=== PATIENT | female | born 1965 | race Caucasian/White ===

== ENCOUNTER 2016-09-09 22:31 | Emergency (ER) | payer BC, OTHER ==
[2016-09-09] MEDS ORDERED: NORMAL SALINE 1000 ML 1,000 ML IV ONE (23:07)
[2016-09-09] MEDS ORDERED: DIPHENHYDRAMINE HCL 50 MG/ML VIAL IV ONE (23:08)
[2016-09-09] MEDS ORDERED: METOCLOPRAMIDE HCL INJ/PF 10 MG/2 ML SDV IV ONE (23:08)
[2016-09-09] MEDS ORDERED: KETOROLAC TROMETHAMINE INJ/PF 30 MG/1 ML SDV IV ONE (23:08)
--- NOTE | 2016-09-09 23:11 | ER Document Report ---
ED General - General Chief Complaint: Chest Pain Stated Complaint: ABDOMINAL PAIN TRAVEL OUTSIDE OF THE [place] IN LAST 30 DAYS: No - HPI Patient complains to provider of: chest pain abdominal pain Notes: Patient coming in for right-sided chest pain abdominal pain starting at 1400 hrs. today. Patient states that time to come nitroglycerin tablet relief her pain was right-sided patient states pain return now feels like a band around her chest and states now she is nauseous. Patient states she took 3 nitros at home 5 minutes apart with no relief in her pain therefore came to ER for further evaluation. Otherwise patient denies a cardiac history denies stents by bypass denies any acute [place] but states that her physician has prescribed her nitro drip home. Patient does have a history of anxiety elevated blood pressure. Patient states she's had a negative stress tests in the past however has been "many years. Patient denies any trauma denies any recent travel denies shortness of breath denies diarrhea. Patient does state she was constipatednoon and had to disimpact herself. Patient initially states pain is very mild however during interview process the nurse attempted an IV stick stated that her chest pain increased to 8 out of 10. Pain was right-sided. - Related Data Allergies/Adverse Reactions: No Known Allergies Allergy (Verified 09/09/16 22:47) Past Medical History - Social History Smoking Status: Unknown if Ever Smoked Family History: CAD - Parents and grandparents in their 60s., CVA, Hypertension , Other - Hypercoagulable state with blood clots - Past Medical History Cardiac Medical History: Reports: Hx Hypercholesterolemia, Hx Hypertension Pulmonary Medical History: Reports: Hx Asthma GI Medical History: Reports: Hx Gastroesophageal Reflux Disease Psychiatric Medical History: Reports: Hx Anxiety, Hx Bipolar Disorder, Hx Depression Past Surgical History: Reports: Hx Appendectomy, Hx Hysterectomy - Immunizations Hx Diphtheria, Pertussis, Tetanus Vaccination: - UNKNOWN Review of Systems - Review of Systems Constitutional: No symptoms reported EENT: No symptoms reported Cardiovascular: Chest pain - Right-sided Respiratory: No symptoms reported Gastrointestinal: Abdominal pain Genitourinary: No symptoms reported Female Genitourinary: No symptoms reported Musculoskeletal: No symptoms reported Skin: No symptoms reported Hematologic/Lymphatic: No symptoms reported Neurological/Psychological: No symptoms reported Physical Exam - Vital signs Vitals: Resp Pulse Ox 14 96 09/09/16 23:31 09/09/16 23:31 Interpretation: Normal - General General appearance: Appears well, Alert - HEENT Head: Normocephalic, Atraumatic Eyes: Normal Pupils: PERRL - Respiratory Respiratory status: No respiratory distress Chest status: Nontender Breath sounds: Normal Chest palpation: Normal - Cardiovascular Rhythm: Regular Heart sounds: Normal auscultation Murmur: No - Abdominal Inspection: Normal Distension: No distension Bowel sounds: Normal Tenderness: Nontender Organomegaly: No organomegaly - Back Back: Normal, Nontender - Extremities General upper extremity: Normal inspection, Nontender, Normal color, Normal ROM , Normal temperature General lower extremity: Normal inspection, Nontender, Normal color, Normal ROM , Normal temperature, Normal weight bearing. No: Althea's sign - Neurological Neuro grossly intact: Yes Cognition: Normal Orientation: AAOx4 Yasmin Coma Scale Eye Opening: Spontaneous [place] Coma Scale Verbal: Oriented [place] Coma Scale Motor: Obeys Commands Yasmin Coma Scale Total: 15 Speech: Normal Motor strength normal: LUE, RUE, LLE, RLE Sensory: Normal - Psychological Associated symptoms: Normal affect, Normal mood - Skin Skin Temperature: Warm Skin Moisture: Dry Skin Color: Normal Course - Re-evaluation Re-evalutation: 09/10/16 00:59 Patient EKG troponin returned negative. D-dimer is also negative. Patient's x- ray does show moderate stool burden large amount stool in the right upper quadrant and transverse colon. More likely this is the reasons for the patient' s pain. Patient will be given a bottle of mag citrate encouraged to follow-up her primary care physician will be discharged home. The patient presents with abdominal pain without signs of peritonitis or other life-threatening or serious etiology. The patient appears stable for discharge and has been instructed to return immediately if the symptoms worsen in any way , or in 8-12hr if not improved for re-evaluation. The patient has been instructed to return if the symptoms worsen or change in any way.. The patient has atypical chest pain as the patient's chest pain is not suggestive of pulmonary embolus, cardiac ischemia, aortic dissection, or other serious etiology. Given the extremely low risk of these diagnoses further testing and evaluation for these possibilities does not appear to be indicated at this time. The patient has been instructed to return if the symptoms worsen or change in any way. - Vital Signs Vital signs: Temp Pulse Resp BP Pulse Ox 14 96 09/09/16 23:31 09/09/16 23:31 - Laboratory Result Diagrams: 09/09/16 23:19 09/09/16 23:19 Discharge - Discharge Clinical Impression: Right-sided chest wall pain Constipation Qualifiers: Constipation type: drug induced constipation Qualified Code(s): K59.03 - Drug induced constipation Condition: Good Disposition: HOME, SELF-CARE Instructions: Chest Pain of Unclear Cause ([facility]), Chest Wall Pain ([facility]), Abdominal Pain ([facility]), Constipation ([facility]) Additional Instructions: Please drink the entire bottle of mag citrate to relieve your constipation. This may cause some abdominal cramping and nausea. May take nausea medication as directed. Please follow-up with your primary care physician. Your laboratory today shows no serious etiology for your right-sided chest pain or your abdominal pain. Forms: Return to Work
[2016-09-09 23:34] LABS: ABSOLUTE BASOPHILS # (AUTO) 0.1 10^3/uL (0.0-0.2); ABSOLUTE EOSINOPHILS # (AUTO) 0.3 10^3/uL (0.0-0.6); ABSOLUTE LYMPHOCYTES (AUTO) 2.5 10^3/uL (0.5-4.7); ABSOLUTE MONOCYTES (AUTO) 0.6 10^3/uL (0.1-1.4); ABSOLUTE NEUT (AUTO) 4.5 10^3/uL (1.7-8.2); BASOPHILS % (AUTO) 1.2 % (0-2); HEMATOCRIT 39.5 % (36.0-47.0); HEMOGLOBIN 12.7 g/dL (12.0-15.5); HGB HCT DIFFERENCE -1.4; LYMPHOCYTES % (AUTO) 30.8 % (13-45); MEAN CORPUSCULAR HEMOGLOBIN 28.8 pg (27.0-33.4); MEAN CORPUSCULAR HGB CONC 32.2 g/dL (32.0-36.0); MEAN CORPUSCULAR VOLUME 90 fl (80-97); RED BLOOD COUNT 4.41 10^6/uL (3.72-5.28); RED CELL DISTRIBUTION WIDTH 13.4 % (11.5-14.0); WHITE BLOOD COUNT 8.1 10^3/uL (4.0-10.5)
[2016-09-09 23:35] LABS: APPEARANCE,URINE CLEAR; BILIRUBIN,URINE NEGATIVE (NEGATIVE); GLUCOSE, URINE NEGATIVE (NEGATIVE); KETONES,URINE NEGATIVE (NEGATIVE); LEUKOCYTE ESTERASE,URINE NEGATIVE (NEGATIVE); NITRITE,URINE NEGATIVE (NEGATIVE); PROTEIN,URINE NEGATIVE (NEGATIVE); URINE SPECIFIC GRAVITY 1.014; UROBILINOGEN,URINE NEGATIVE mg/dL (<2.0)
[2016-09-10 00:02] LABS: ALANINE AMINOTRANSFERASE 27 U/L (9-52); ALBUMIN 4.4 g/dL (3.5-5.0); ALKALINE PHOSPHATASE 68 U/L (38-126); ANION GAP 12 (5-19); ASPARTATE AMINO TRANSFERASE 19 U/L (14-36); BILIRUBIN,TOTAL 0.7 mg/dL (0.2-1.3); BLOOD UREA NITROGEN 16 mg/dL (7-20); CALCIUM 9.8 mg/dL (8.4-10.2); CARBON DIOXIDE 30 mmol/L (22-30); CHLORIDE 101 mmol/L (98-107); CREATINE KINASE 101 U/L (30-135); CREATININE RESULT 0.88 mg/dL (0.52-1.25); GLUCOSE 90 mg/dL (75-110); LIPASE 143.1 U/L (23-300); POTASSIUM 4.4 mmol/L (3.6-5.0); SODIUM 142.6 mmol/L (137-145); TOTAL PROTEIN 6.9 g/dL (6.3-8.2)
[2016-09-10 00:13] LABS: CREATINE KINASE MB 1.03 ng/mL (<4.55)
[2016-09-10 00:19] LABS: TROPONIN I < 0.012 ng/mL
[2016-09-10 00:43] LABS: URINE BARBITURATES SCREEN NEGATIVE; URINE METHADONE SCREEN NEGATIVE; URINE PHENCYCLIDINE SCREEN NEGATIVE
[2016-09-10] MEDS ORDERED: ONDANSETRON ODT 4 MG TAB (6 TAB/DSPK) PO PRN (01:02)
[2016-09-10] MEDS ORDERED: MAGNESIUM CITRATE 296 ML BOTTLE PO ONE (01:02)
[2016-09-10 01:32] VITALS: BP 105/64
--- NOTE | 2016-09-10 08:18 | EKG REPORT ---
SEVERITY:- NORMAL ECG - SINUS RHYTHM : Confirmed by: Glen Dye MD 10-Sep-2016 08:17:45
== END 2016-09-10 01:40 | disposition home or self-care (01) ==
LOC: ER 22:31
DX: R07.89 Other chest pain (principal); K59.03 Drug induced constipation; R10.9 Unspecified abdominal pain; R11.0 Nausea; E78.00 Pure hypercholesterolemia, unspecified; I10 Essential (primary) hypertension; K21.9 Gastro-esophageal reflux disease without esophagitis; Z90.710 Acquired absence of both cervix and uterus
CPT/HCPCS: 93005; 99285; 96361; 96374; 96375; 36415; 87086; 82553; 82550; 83690; 83735; 85025; 80053; 81001; 84484; 80307; 85379; 74022; 93010; J3490; J1200; J1885; J2765; J7030

== ENCOUNTER 2017-12-23 19:20 | Observation (INO) | payer OTHER ==
[2017-12-23] MEDS ORDERED: ONDANSETRON HCL INJ/PF 4 MG/2 ML SDV IV ONE (20:40)
[2017-12-23] MEDS ORDERED: NORMAL SALINE 1000 ML 1,000 ML IV ONE ×2 (20:40→22:34)
[2017-12-23] MEDS ORDERED: PROCHLORPERAZINE EDISYLATE INJ 10 MG/2 ML VIAL IV ONE (20:40)
[2017-12-23 21:09] LABS: ABSOLUTE BASOPHILS # (AUTO) 0.1 10^3/uL (0.0-0.2); ABSOLUTE EOSINOPHILS # (AUTO) 0.2 10^3/uL (0.0-0.6); ABSOLUTE LYMPHOCYTES (AUTO) 1.7 10^3/uL (0.5-4.7); ABSOLUTE MONOCYTES (AUTO) 0.5 10^3/uL (0.1-1.4); ABSOLUTE NEUT (AUTO) 4.1 10^3/uL (1.7-8.2); BASOPHILS % (AUTO) 1.3 % (0-2); EOSINOPHILS % (AUTO) 3.3 % (0-6); HEMATOCRIT 39.4 % (36.0-47.0); HEMOGLOBIN 13.3 g/dL (12.0-15.5); LYMPHOCYTES % (AUTO) 26.3 % (13-45); MEAN CORPUSCULAR HEMOGLOBIN 29.1 pg (27.0-33.4); MEAN CORPUSCULAR HGB CONC 33.7 g/dL (32.0-36.0); MEAN CORPUSCULAR VOLUME 86 fl (80-97); MONOCYTES % (AUTO) 7.5 % (3-13); PLATELET COUNT 173 10^3/uL (150-450); RED BLOOD COUNT 4.56 10^6/uL (3.72-5.28); RED CELL DISTRIBUTION WIDTH 13.8 % (11.5-14.0); SEGMENTED NEUTROPHILS % (AUTO) 61.6 % (42-78); TOTAL CELLS COUNTED % (AUTO) 100 %; WHITE BLOOD COUNT 6.6 10^3/uL (4.0-10.5)
[2017-12-23 21:15] LABS: INTERNATIONAL RATION (INR) 0.94; PROTHROMBIN TIME 13.1 SEC (11.4-15.4)
[2017-12-23 21:23] LABS: ALANINE AMINOTRANSFERASE 34 U/L (9-52); ALKALINE PHOSPHATASE 76 U/L (38-126); ANION GAP 11 (5-19); ASPARTATE AMINO TRANSFERASE 19 U/L (14-36); BILIRUBIN,DIRECT 0.2 mg/dL (0.0-0.4); BILIRUBIN,TOTAL 0.4 mg/dL (0.2-1.3); BLOOD UREA NITROGEN 14 mg/dL (7-20); CALCIUM 9.7 mg/dL (8.4-10.2); CARBON DIOXIDE 27 mmol/L (22-30); CHLORIDE 104 mmol/L (98-107); CREATINE KINASE 54 U/L (30-135); GLUCOSE 119 mg/dL (75-110); LIPASE 58.3 U/L (23-300); POTASSIUM 4.2 mmol/L (3.6-5.0); SODIUM 142.4 mmol/L (137-145); TOTAL PROTEIN 6.7 g/dL (6.3-8.2)
--- NOTE | 2017-12-23 21:25 | RADIOLOGY REPORT (SQ) ---
EXAM DESCRIPTION: CT HEAD WITHOUT COMPLETED DATE/TIME: 12/23/2017 9:15 pm REASON FOR STUDY: dizzy COMPARISON: None. TECHNIQUE: Axial images acquired through the brain without intravenous contrast. Images reviewed wi th bone, brain and subdural windows. Additional sagittal and coronal reconstructions were generated. Images stored on PACS. All CT scanners at this facility use dose modulation, iterative reconstruction, and/or weight based d osing when appropriate to reduce radiation dose to as low as reasonably achievable (ALARA). [facility]: Dose Right [facility]: CareDose [facility]: Dose Right [facility]: Teradose 4D [facility]: Accord RADIATION DOSE: CT Rad equipment meets quality standard of care and radiation dose reduction techniq ues were employed. CTDIvol: 53.2 mGy. DLP: 1017 mGy-cm. mGy. LIMITATIONS: None. FINDINGS: VENTRICLES: Normal size and contour. CEREBRUM: No masses. No hemorrhage. No midline shift. No evidence for acute infarction. Normal gra y/white matter differentiation. No areas of low density in the white matter. CEREBELLUM: No masses. No hemorrhage. No alteration of density. No evidence for acute infarction. EXTRAAXIAL SPACES: No fluid collections. No masses. ORBITS AND GLOBE: No intra- or extraconal masses. Normal contour of globe without masses. CALVARIUM: No fracture. PARANASAL SINUSES: No fluid or mucosal thickening. SOFT TISSUES: No mass or hematoma. OTHER: No other significant finding. IMPRESSION: NORMAL BRAIN CT WITHOUT CONTRAST. EVIDENCE OF ACUTE STROKE: NO. COMMENT: Quality ID # [id number]: Final reports with documentation of one or more dose reduction techniques (e.g., Automated exposure control, adjustment of the mA and/or kV according to patient size, use of iterative reconstruction technique) TECHNICAL DOCUMENTATION: JOB ID: [id number] [employer]- All Rights Reserved Reading location - IP/workstation name: PAT
[2017-12-23 21:35] LABS: CREATINE KINASE MB 0.67 ng/mL (<4.55)
[2017-12-23 21:37] LABS: TROPONIN I < 0.012 ng/mL
--- NOTE | 2017-12-23 22:24 | EKG REPORT ---
SEVERITY:- NORMAL ECG - SINUS RHYTHM : Confirmed by: Giovani Maza 23-Dec-2017 22:23:49
[2017-12-23] MEDS ORDERED: ACETAMINOPHEN 325 MG TABLET PO ONE (22:41)
--- NOTE | 2017-12-23 23:18 | ER Document Report ---
ED General - General TRAVEL OUTSIDE OF THE [place] IN LAST 30 DAYS: No - HPI Patient complains to provider of: Dizziness <OSCAR AKBAR - Last Filed: 12/23/17 23:27> <ASHISH DODGE - Last Filed: 12/24/17 02:58> - General Chief Complaint: Dizziness Stated Complaint: DIZZINESS Time Seen by Provider: 12/23/17 20:25 - HPI Notes: History this morning. Patient states also having a ringing in both ears. Patient has a history of having symptoms before denies history of vertigo or ringing in her ear. Denies any recent travel or travel or swimming or diving. Denies any drainage from her ear or ear pain. Patient states feels like wind blowing in her ears. Patient states her dizziness is exacerbated with sitting up and movement. Patient states he has been eating and drinking regularly. Patient also states has a past medical history positive for hypothyroidism depression multiple personalities. Patient states that she is unaware when she had a today is that sometimes the other personalities will have meals that she is unaware of. Denies fevers chills nausea vomiting diarrhea chest pain abdominal pain patient is resting healthy upon my evaluation. (OSCAR AKBAR) - Related Data Allergies/Adverse Reactions: No Known Allergies Allergy (Verified 09/09/16 22:47) Past Medical History - Social History Smoking Status: Former Smoker Chew tobacco use (# tins/day): No Frequency of alcohol use: None Drug Abuse: None Family History: CAD - Parents and grandparents in their 60s., CVA, Hypertension , Other - Hypercoagulable state with blood clots Patient has suicidal ideation: No Patient has homicidal ideation: No - Past Medical History Cardiac Medical History: Reports: Hx Hypercholesterolemia, Hx Hypertension Pulmonary Medical History: Reports: Hx Asthma Renal/ Medical History: Denies: Hx Peritoneal Dialysis GI Medical History: Reports: Hx Gastroesophageal Reflux Disease Psychiatric Medical History: Reports: Hx Anxiety, Hx Bipolar Disorder, Hx Depression Past Surgical History: Reports: Hx Appendectomy, Hx Hysterectomy - Immunizations Hx Diphtheria, Pertussis, Tetanus Vaccination: - UNKNOWN <OSCAR AKBAR - Last Filed: 12/23/17 23:27> Review of Systems - Review of Systems Constitutional: No symptoms reported, Weakness EENT: No symptoms reported Cardiovascular: No symptoms reported Respiratory: No symptoms reported Gastrointestinal: No symptoms reported Genitourinary: No symptoms reported Female Genitourinary: No symptoms reported Musculoskeletal: No symptoms reported Skin: No symptoms reported Hematologic/Lymphatic: No symptoms reported Neurological/Psychological: Other - Dizziness -: Yes All other systems reviewed and negative <OSCAR AKBAR Filed: 12/23/17 23:27> Physical Exam - Vital signs Interpretation: Normal - General General appearance: Appears well, Alert - HEENT Head: Normocephalic, Atraumatic Eyes: Normal Conjunctiva: Normal Cornea: Normal Extraocular movements intact: Yes Eyelashes: Normal Pupils: PERRL Ears: Normal External canal: Normal Tympanic membrane: Normal Sinus: Normal Nasal: Normal Mouth/Lips: Normal Mucous membranes: Normal Pharynx: Normal Neck: Normal - Respiratory Respiratory status: No respiratory distress Chest status: Nontender Breath sounds: Normal Chest palpation: Normal - Cardiovascular Rhythm: Regular Heart sounds: Normal auscultation Murmur: No - Abdominal Inspection: Normal Distension: No distension Bowel sounds: Normal Tenderness: Nontender Organomegaly: No organomegaly - Back Back: Normal, Nontender - Extremities General upper extremity: Normal inspection, Nontender, Normal color, Normal ROM , Normal temperature General lower extremity: Normal inspection, Nontender, Normal color, Normal ROM , Normal temperature, Normal weight bearing. No: Althea's sign - Neurological Neuro grossly intact: Yes Cognition: Normal Orientation: AAOx4 Yasmin Coma Scale Eye Opening: Spontaneous [place] Coma Scale Verbal: Oriented Yasmin Coma Scale Motor: Obeys Commands Yasmin Coma Scale Total: 15 Speech: Normal Cranial nerves: Normal Motor strength normal: LUE, RUE, LLE, RLE Sensory: Normal Knee - Reflex grade: 2 = Normal - Psychological Associated symptoms: Normal affect, Normal mood - Skin Skin Temperature: Warm Skin Moisture: Dry Skin Color: Normal <OSCAR AKBAR Last Filed: 12/23/17 23:27> - Vital signs Vitals: Temp Pulse Resp BP Pulse Ox 98.5 F 65 18 118/81 93 12/23/17 19:40 12/23/17 19:40 12/23/17 19:40 12/23/17 19:40 12/23/17 19:40 Course - Laboratory Result Diagrams: 12/23/17 20:50 12/23/17 20:50 <OSCAR AKBAR - Last Filed: 12/23/17 23:27> - Laboratory Result Diagrams: 12/23/17 20:50 12/23/17 20:50 <ASHISH DODGE - Last Filed: 12/24/17 02:58> - Re-evaluation Re-evalutation: 12/23/17 23:17 Orthostatics are positive on patient reproducing the patient's symptoms. Otherwise laboratory studies are negative. Currently waiting on urinalysis. Ringing in ears more likely labyrinthitis or Mnire's no other critical pathology seen on examination. Patient was given Antivert. Patient is already on 10 mg of Valium daily twice daily. We will continue to monitor patient with disposition will likely will be home 12/23/17 23:27 Patient now resting comfortably on her side stating that she feels better this complain of slight headache. Patient more likely has orthostatic dizziness encouraged the patient to stay hydrated. We will continue with meclizine patient will be discharged home. (OSCAR AKBAR) 12/24/17 00:34 Patient was going to be discharged. Patient has history of some psychiatric disorder. She actually presents with vertigo type dizziness and ringing in her ears. It is worse when she sits up. She was given meclizine apparently was feeling some better but when they went to discharge her she was still having a lot of dizziness was unable to sit up on her own. Her blood pressure was also a bit low. I just her cuff recheck her blood pressure in her blood pressure is okay however when I go to set her up she becomes very dizzy is unable to balance herself. She does admit that she does not had any of her nighttime medications which include Valium 10 mg. I will have her take her nighttime medications. I will continue monitor and reassess her. 12/24/17 02:54 She continues to have intermittent episodes of hypotension. She continues to be very dizzy when she sits up. I think this most likely is going to be medication related. To the fact that she appeared continues to have recurrent bouts of hypotension and dizziness to the point where she cannot get out of bed I have spoke with the hospitalist, Dr. Sanchez, who agrees to admit the patient. Dictation of this chart was performed using voice recognition software; therefore, there may be some unintended grammatical errors. (ASHISH DODGE) - Vital Signs Vital signs: Temp Pulse Resp BP Pulse Ox 98.5 F 64 10 L 87/55 L 94 12/23/17 19:40 12/23/17 21:34 12/24/17 00:23 12/24/17 00:23 12/24/17 00:23 - Laboratory Laboratory results interpreted by me: 12/23/17 12/24/17 12/24/17 20:50 00:35 00:54 Glucose 119 H Ur Leukocyte Esterase LARGE H Salicylates < 1.0 L Discharge <OSCAR AKBAR - Last Filed: 12/23/17 23:27> - Discharge Unit Admitted: Telemetry <ASHISH DODGE - Last Filed: 12/24/17 02:58> - Discharge Clinical Impression: Dizziness Hypotension Qualifiers: Hypotension type: unspecified hypotension type Qualified Code(s): I95.9 - Hypotension, unspecified Condition: Stable Disposition: ADMITTED OBSERVATION Additional Instructions: Your laboratory values today did not show any critical pathology. Her vital signs do show signs of orthostasis more likely causing her dizziness whenever he change position your blood pressure does not respond correctly you have a low blood pressure which causes the dizziness. Most on this is caused by dehydration. Please make sure you are drinking plenty of fluids. We will also start you on a medication called Antivert to help out with the dizziness. Follow-up with your primary care physician return to ER symptoms worsen Prescriptions: Meclizine HCl [Antivert 25 mg Tablet] 25 mg PO TID PRN #21 tablet PRN Reason: Referrals: KARISSA OLIVARES MD [Primary Care Provider] - Follow up in 3-5 days
[2017-12-24 01:36] LABS: APPEARANCE,URINE SLIGHTLY-CLOUDY; BILIRUBIN,URINE NEGATIVE (NEGATIVE); COLOR,URINE YELLOW; GLUCOSE, URINE NEGATIVE (NEGATIVE); KETONES,URINE NEGATIVE (NEGATIVE); LEUKOCYTE ESTERASE,URINE LARGE (NEGATIVE); NITRITE,URINE NEGATIVE (NEGATIVE); PROTEIN,URINE NEGATIVE (NEGATIVE); UROBILINOGEN,URINE NEGATIVE mg/dL (<2.0)
[2017-12-24] MEDS ORDERED: NORMAL SALINE 500 ML IV ONE (02:39)
[2017-12-24] MEDS ORDERED: ACETAMINOPHEN 325 MG TABLET PO PRN (02:54)
[2017-12-24] MEDS ORDERED: ONDANSETRON HCL INJ/PF 4 MG/2 ML SDV IV PRN (02:54)
[2017-12-24] MEDS ORDERED: MAGNESIUM HYDROXIDE SUSP 30 ML UDCUP PO PRN (02:54)
[2017-12-24] MEDS ORDERED: IPRATROPIUM/ALBUTEROL 0.5-2.5 MG/3 ML AMPUL NEB PRN (02:54)
[2017-12-24 02:57] LABS: FREE T4 (FREE THYROXINE) 1.01 ng/dL (0.78-2.19)
[2017-12-24] MEDS: NORMAL SALINE 1000 ML 1,000 ML IV PRN ×2 (05:23→10:10)
[2017-12-24] MEDS: HEPARIN SOD (PORCINE) 5,000 UNIT/ML 1 ML SYRINGE SUBCUT SCH ×3 (06:37→21:38)
--- NOTE | 2017-12-24 06:44 | PDOC H&P ---
History of Present Illness Admission Date/PCP: 12/24/17 02:54 KARISSA OLIVARES MD Patient complains of: Dizziness History of Present Illness: EDVIN LYMAN is a 52 year old female with history of morbid obesity, vertigo , COPD, benzodiazepine dependent anxiety and depression. Patient presents with spinning and ringing in her ears worse when she sits up a trial of meclizine improved symptoms. Upon reevaluation patient was hypotensive and admits to taking her home Valium. She receives an IV fluid challenge but remains orthostatic with odd affect. She is referred to the hospitalist for observation. Patient denies recent change in medications admits last panic attack approximately a month ago. Past Medical History Cardiac Medical History: Reports: Hyperlipidema, Hypertension Pulmonary Medical History: Reports: Asthma Neurological Medical History: Reports: Other - Vertigo GI Medical History: Reports: Gastroesophageal Reflux Disease Psychiatric Medical History: Reports: Bipolar Disorder, Depression, General Anxiety Disorder Past Surgical History Past Surgical History: Reports: Appendectomy, Hysterectomy Social History Information Source: Patient, [facility] Records Smoking Status: Former Smoker Frequency of Alcohol Use: None Hx Recreational Drug Use: No Drugs: None - Advance Directive Resuscitation Status: Full Code Family History Family History: CAD - Parents and grandparents in their 60s., CVA, Hypertension , Other - Hypercoagulable state with blood clots Parental Family History Reviewed: Yes Children Family History Reviewed: Yes Sibling(s) Family History Reviewed.: Yes Medication/Allergy Home Medications: Diazepam 1 tab PO ASDIR 06/24/16 Venlafaxine HCl [Venlafaxine HCl ER] 1 cap PO BID 06/24/16 Aspirin [Aspirin 81 mg Chewable Tablet] 81 mg PO DAILY tab.chew 06/25/16 Esomeprazole Mag Trihydrate [Nexium] 40 mg PO DAILY #30 capsule. 06/25/16 Fluticasone/Salmeterol [Advair 250-50 Diskus 14 Dose/Diskus] 1 inh IH BID inhaler 06/25/16 Montelukast Sodium [Singulair 10 mg Tablet] 10 mg PO DAILY tablet 06/25/16 Sulfamethoxazole/Trimethoprim [Bactrim Ds Tablet] 1 each PO BID #6 tablet Meclizine HCl [Antivert 25 mg Tablet] 25 mg PO TID PRN #21 tablet 12/23/17 Allergies/Adverse Reactions: No Known Allergies Allergy (Verified 09/09/16 22:47) Review of Systems Constitutional: ABSENT: chills, fever(s), headache(s), weight gain, weight loss Eyes: ABSENT: visual disturbances Ears: ABSENT: hearing changes Cardiovascular: ABSENT: chest pain, dyspnea on exertion, edema, orthropnea, palpitations Respiratory: ABSENT: cough, hemoptysis Gastrointestinal: ABSENT: abdominal pain, constipation, diarrhea, hematemesis, hematochezia, nausea, vomiting Genitourinary: ABSENT: dysuria, hematuria Musculoskeletal: ABSENT: joint swelling Integumentary: ABSENT: rash, wounds Neurological: ABSENT: abnormal gait, abnormal speech, confusion, dizziness, focal weakness, syncope Psychiatric: ABSENT: anxiety, depression, homidical ideation, suicidal ideation Endocrine: ABSENT: cold intolerance, heat intolerance, polydipsia, polyuria Hematologic/Lymphatic: ABSENT: easy bleeding, easy bruising Physical Exam Vital Signs: Temp Pulse Resp BP Pulse Ox 98.5 F 57 L 21 H 84/58 L 97 12/23/17 19:40 12/24/17 04:00 12/24/17 06:00 12/24/17 05:01 12/24/17 06:00 General appearance: PRESENT: no acute distress, well-developed, well-nourished Head exam: PRESENT: atraumatic, normocephalic Eye exam: PRESENT: conjunctiva pink, EOMI, PERRLA. ABSENT: scleral icterus Ear exam: PRESENT: normal external ear exam Mouth exam: PRESENT: moist, tongue midline Neck exam: ABSENT: carotid bruit, JVD, lymphadenopathy, thyromegaly Respiratory exam: PRESENT: clear to auscultation angella. ABSENT: rales, rhonchi, wheezes Cardiovascular exam: PRESENT: RRR. ABSENT: diastolic murmur, rubs, systolic murmur Pulses: PRESENT: normal dorsalis pedis pul Vascular exam: PRESENT: normal capillary refill GI/Abdominal exam: PRESENT: normal bowel sounds, soft. ABSENT: distended, guarding, mass, organolmegaly, rebound, tenderness Rectal exam: PRESENT: deferred Extremities exam: PRESENT: full ROM. ABSENT: calf tenderness, clubbing, pedal edema Neurological exam: PRESENT: alert, awake, oriented to person, oriented to place , oriented to time, oriented to situation, CN II-XII grossly intact. ABSENT: motor sensory deficit Psychiatric exam: PRESENT: depressed, unusual affect. ABSENT: homicidal ideation, suicidal ideation Focused psych exam: PRESENT: other - Sedated Skin exam: PRESENT: dry, intact, warm. ABSENT: cyanosis, rash Results Impressions: Head CT 12/23/17 20:35 IMPRESSION: NORMAL BRAIN CT WITHOUT CONTRAST. EVIDENCE OF ACUTE STROKE: NO. Assessment & Plan - Diagnosis (1) Dizziness Is this a current diagnosis for this admission?: Yes Plan: Acute on chronic meclizine as needed (2) Hypotension Qualifiers: Hypotension type: unspecified hypotension type Qualified Code(s): I95.9 - Hypotension, unspecified Is this a current diagnosis for this admission?: Yes Plan: Secondary to benzodiazepine. IV fluid challenge, supportive care reduction dose and education (3) Anxiety and depression Is this a current diagnosis for this admission?: Yes Plan: Denies suicidal or homicidal ideation, follow-up outpatient mental health - Time Time Spent: 30 to 50 Minutes
[2017-12-24] MEDS ORDERED: FLUTICASONE/SALMETEROL DISKUS 250-50 MCG/DOSE IH SCH (10:00)
[2017-12-24] MEDS: ASPIRIN 81 MG TABLET, CHEWABLE PO SCH (10:02)
[2017-12-24] MEDS: DOCUSATE SODIUM 100 MG CAPSULE PO SCH ×2 (10:02→18:12)
[2017-12-24] MEDS ORDERED: (PENDING PHARMACY ID) (Vortioxetine Hydrobromide [Trintellix] 10 MG) PO SCH ×2 (11:00→13:00)
[2017-12-24] MEDS ORDERED: ILOPERIDONE 6 MG PO SCH ×2 (11:00→13:00)
[2017-12-24] MEDS ORDERED: NORMAL SALINE 1000 ML 1,000 ML IV ONE ×2 (11:13→11:45)
[2017-12-24] MEDS: LEVOTHYROXINE SODIUM 0.088 MG TABLET PO SCH (12:19)
[2017-12-24] MEDS ORDERED: MECLIZINE HCL 12.5 MG TABLET PO PRN (16:36)
--- NOTE | 2017-12-24 16:42 | Progress Note ---
Provider Note Provider Note: Agree with relief operator plan of care. 1. Dizziness: Initiate meclizine 12.5 mg p.o. every 8 hours. Following IVF resuscitation, the patient is unable to ambulate consider MRI/MRA brain to evaluate for lesion, tumor, CVA to explain persistent symptoms. 2. Hypotension: Likely multifactorial, dehydration in the setting of Valium use may explain her HYPOtension. Blood pressure did respond to fluid challenge in the emergency department. Administered 2 L IVF bolus and continue 150 mL/h in an attempt to rehydrate. Will attempt orthostatic vital signs and ambulation following IVF resuscitation. 3. Anxiety/depression: The patient is currently on a number of psychiatric medications, many of which are nonformulary at [facility]. The patient may resume taking her home medications. Per pharmacy policy the patient must turn over her medications to nursing staff, which will be kept in a secure location, and dispensed according to her home regimen schedule.
[2017-12-24] MEDS: FLUTICASONE/SALMETEROL DISKUS 250-50 MCG/DOSE IH SCH (18:13)
[2017-12-24] MEDS ORDERED: ZOLPIDEM TARTRATE 5 MG TABLET PO SCH (22:00)
[2017-12-24] MEDS ORDERED: (PENDING PHARMACY ID) (Prazosin Hcl [Minipress] 1 MG) PO SCH (22:00)
[2017-12-24] MEDS ORDERED: MONTELUKAST SODIUM 10 MG TABLET PO SCH (22:00)
[2017-12-24] MEDS ORDERED: DOXAZOSIN MESYLATE 2 MG TABLET PO SCH (22:00)
[2017-12-24] MEDS ORDERED: PRAZOSIN HCL 1 MG PO SCH (22:00)
[2017-12-25] MEDS: LEVOTHYROXINE SODIUM 0.088 MG TABLET PO SCH (06:14)
[2017-12-25] MEDS: FLUTICASONE/SALMETEROL DISKUS 250-50 MCG/DOSE IH SCH (06:15)
[2017-12-25] MEDS: HEPARIN SOD (PORCINE) 5,000 UNIT/ML 1 ML SYRINGE SUBCUT SCH (06:17)
[2017-12-25 07:03] LABS: ABSOLUTE BASOPHILS # (AUTO) 0.1 10^3/uL (0.0-0.2); ABSOLUTE EOSINOPHILS # (AUTO) 0.2 10^3/uL (0.0-0.6); ABSOLUTE LYMPHOCYTES (AUTO) 1.8 10^3/uL (0.5-4.7); ABSOLUTE MONOCYTES (AUTO) 0.4 10^3/uL (0.1-1.4); ABSOLUTE NEUT (AUTO) 3.1 10^3/uL (1.7-8.2); BASOPHILS % (AUTO) 0.9 % (0-2); HEMATOCRIT 38.2 % (36.0-47.0); LYMPHOCYTES % (AUTO) 32.7 % (13-45); MEAN CORPUSCULAR HEMOGLOBIN 29.2 pg (27.0-33.4); MEAN CORPUSCULAR VOLUME 86 fl (80-97); MONOCYTES % (AUTO) 7.7 % (3-13); PLATELET COUNT 164 10^3/uL (150-450); RED BLOOD COUNT 4.45 10^6/uL (3.72-5.28); RED CELL DISTRIBUTION WIDTH 13.6 % (11.5-14.0); SEGMENTED NEUTROPHILS % (AUTO) 54.7 % (42-78); TOTAL CELLS COUNTED % (AUTO) 100 %; WHITE BLOOD COUNT 5.6 10^3/uL (4.0-10.5)
[2017-12-25 07:18] LABS: ANION GAP 9 (5-19); BLOOD UREA NITROGEN 9 mg/dL (7-20); CALCIUM 9.5 mg/dL (8.4-10.2); CARBON DIOXIDE 27 mmol/L (22-30); CHLORIDE 108 mmol/L (98-107); GLUCOSE 101 mg/dL (75-110); SODIUM 143.6 mmol/L (137-145)
--- NOTE | 2017-12-25 08:36 | RADIOLOGY REPORT (SQ) ---
EXAM DESCRIPTION: MRI HEAD COMBO; MRA HEAD WITHOUT COMPLETED DATE/TIME: 12/24/2017 8:35 pm REASON FOR STUDY: dizziness L blurry vision. 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 Images stored on PACS. 3D cygx-sy-xukdor [place] MRA exam was performed. Source data and maximum intensity project ed images were reviewed. CONTRAST TYPE AND DOSE: 20 mL Multihance. RENAL FUNCTION: GFR > 60. LIMITATIONS: None. FINDINGS: ANATOMY: No anomalies. Normal vascular flow voids. Pituitary fossa normal. CSF SPACES: Normal in size and contour. No hemorrhage. CEREBRUM: Sulci and gyri normal in size and contour. Normal white matter signal on FLAIR imaging. No evidence of hemorrhage, mass, or extraaxial fluid collection. No abnormal enhancement post contrast. POSTERIOR FOSSA: No signal alteration. No hemorrhage. No edema, masses, or mass effect. Internal marianela tory canals, cerebellopontine angles, mastoids normal. No enhancing lesions. No abnormal enhancement post contrast. DIFFUSION IMAGING: Negative for acute or subacute infarction. ORBITS: No masses. Globes normal. PARANASAL SINUSES: No fluid levels. Mucosa normal. [place] MRA: No [place] stenosis, vascular malformation, or aneurysm No other signi ficant finding. IMPRESSION: NORMAL MRI and MRA OF THE BRAIN WITHOUT AND WITH INTRAVENOUS GADOLINIUM CONTRAST. EVIDENCE OF ACUTE STROKE: NO. TECHNICAL DOCUMENTATION: JOB ID: [id number] [employer]- All Rights Reserved Reading location - IP/workstation name: [facility]
--- NOTE | 2017-12-25 08:36 | RADIOLOGY REPORT (SQ) ---
EXAM DESCRIPTION: MRI HEAD COMBO; MRA HEAD WITHOUT COMPLETED DATE/TIME: 12/24/2017 8:35 pm REASON FOR STUDY: dizziness L blurry vision. 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 Images stored on PACS. 3D rzni[place]sf[place]selbtu [place] MRA exam was performed. Source data and maximum intensity project ed images were reviewed. CONTRAST TYPE AND DOSE: 20 mL Multihance. RENAL FUNCTION: GFR > 60. LIMITATIONS: None. FINDINGS: ANATOMY: No anomalies. Normal vascular flow voids. Pituitary fossa normal. CSF SPACES: Normal in size and contour. No hemorrhage. CEREBRUM: Sulci and gyri normal in size and contour. Normal white matter signal on FLAIR imaging. No evidence of hemorrhage, mass, or extraaxial fluid collection. No abnormal enhancement post contrast. POSTERIOR FOSSA: No signal alteration. No hemorrhage. No edema, masses, or mass effect. Internal marianela tory canals, cerebellopontine angles, mastoids normal. No enhancing lesions. No abnormal enhancement post contrast. DIFFUSION IMAGING: Negative for acute or subacute infarction. ORBITS: No masses. Globes normal. PARANASAL SINUSES: No fluid levels. Mucosa normal. [place] MRA: No [place] stenosis, vascular malformation, or aneurysm No other signi ficant finding. IMPRESSION: NORMAL MRI and MRA OF THE BRAIN WITHOUT AND WITH INTRAVENOUS GADOLINIUM CONTRAST. EVIDENCE OF ACUTE STROKE: NO. TECHNICAL DOCUMENTATION: JOB ID: [id number] [employer]- All Rights Reserved Reading location - IP/workstation name: [facility] [place]
[2017-12-25] MEDS: DOCUSATE SODIUM 100 MG CAPSULE PO SCH (09:54)
[2017-12-25] MEDS: ASPIRIN 81 MG TABLET, CHEWABLE PO SCH (09:55)
[2017-12-25] MEDS ORDERED: Vortioxetine Hydrobromide [Trintellix] 10 MG PO SCH (10:00)
[2017-12-25] MEDS ORDERED: ATORVASTATIN CALCIUM 10 MG TABLET PO SCH (10:00)
[2017-12-25 10:47] VITALS: BP 125/76
[2017-12-29] MEDS ORDERED: ERGOCALCIFEROL (VITAMIN D2) 50000 UNIT (1.25 MG) CAPSULE PO SCH (10:00)
--- NOTE | 2017-12-31 17:37 | PDOC DISCHARGE SUMMARY ---
General - Admit/Disc Date/PCP Admission Date/Primary Care Provider: 12/24/17 02:54 KARISSA OLIVARES MD Discharge Date: 12/25/17 - Discharge Diagnosis (1) Dizziness Is this a current diagnosis for this admission?: Yes Summary: The patient presented with dizziness, blurry vision, and ataxia These are all side effect of Fanapt, a psych medication perscribed to the patient The patient also takes Valium, it is possible her polypharmacy played a part in her symptoms of dizziness Following IVF resuscitation, the patient was still unable to ambulate. Initiated meclizine 12.5 mg p.o. every 8 hours. MRI/MRA brain to evaluate for lesion, tumor, CVA to explain persistent symptoms. Results negative Following 48hrs in the hospital, the patient's symptoms had subsided, she was able to ambulate. Encouraged the patient to talk to her psychiatrist about replacing her Fanapt. Discouraged her from taking Valium unless absolutely necessary (2) Hypotension Is this a current diagnosis for this admission?: Yes Summary: Likely multifactorial, dehydration in the setting of Valium use may explain her HYPOtension. Blood pressure did respond to fluid challenge in the emergency department. Administered 2 L IVF bolus and continue 150 mL/h for 24 hours to rehydrate. Prior to discharge, orthostatic vital signs were normal and no difficulty with ambulation (3) Anxiety and depression Is this a current diagnosis for this admission?: Yes Summary: The patient is on a number of psychiatric medications, many of which [facility] The patient resumd taking her home medication, with the exception of Fanapt. It is possible that the Fanapt resulted in her dizziness, blurry vision and ataxia. In addition to her Fanapt the patient also takes Valium. Her polypharmacy could be the likely culprit of her symptoms. The patient was encouraged to only take valium as needed, instead of everyday like she had been. Additionally, she was encouraged to talk to her psychiatrist about switching Fanapt to another medication. - Additional Information Resuscitation Status: Full Code Discharge Diet: As Tolerated Discharge Activity: Activity As Tolerated, Balance Activity w/Rest Prescriptions: Meclizine HCl [Antivert 12.5 mg Tablet] 12.5 mg PO Q8HP PRN #25 tablet PRN Reason: Home Medications: Diazepam [Valium] 10 mg PO Q12 12/24/17 Ergocalciferol (Vitamin D2) [Drisdol 50,000 unit (1.25MG) Capsule] 50,000 units PO SAHA@1000 12/24/17 Esomeprazole Magnesium [Nexium] 40 mg PO BID 12/24/17 Fluticasone/Salmeterol [Advair 250-50 Diskus 14 Dose/Diskus] 1 puff IH Q12 12/24 Gabapentin [Neurontin] 600 mg PO Q6 12/24/17 Levothyroxine Sodium [Synthroid 0.088 mg Tablet] 0.088 mg PO Q6AM 12/24/17 Metaxalone [Skelaxin 800 mg Tablet] 800 mg PO Q8HP PRN 12/24/17 Montelukast Sodium [Singulair 10 mg Tablet] 10 mg PO QHS 12/24/17 Pravastatin Sodium [Pravachol] 20 mg PO DAILY 12/24/17 Prazosin HCl [Minipress] 1 mg PO QHS 12/24/17 Vortioxetine Hydrobromide [Trintellix] 10 mg PO DAILY 12/24/17 Zolpidem Tartrate [Ambien] 10 mg PO QHS 12/24/17 Meclizine HCl [Antivert 12.5 mg Tablet] 12.5 mg PO Q8HP PRN #25 tablet 12/25/17 History of Present Illness History of Present Illness: EDVIN LYMAN is a 52 year old female Hospital Course Hospital Course: as abOVE Physical Exam Vital Signs: Temp Pulse Resp BP Pulse Ox 97.8 F 66 12 125/76 97 12/25/17 11:31 12/25/17 11:31 12/25/17 11:31 12/25/17 11:31 12/25/17 11:31 Results Laboratory Results: 12/25/17 06:05 12/25/17 06:05 Impressions: Head CT 12/23/17 20:35 IMPRESSION: NORMAL BRAIN CT WITHOUT CONTRAST. EVIDENCE OF ACUTE STROKE: NO. Brain MRI with MRA 12/24/17 00:00 IMPRESSION: NORMAL MRI and MRA OF THE BRAIN WITHOUT AND WITH INTRAVENOUS GADOLINIUM CONTRAST. EVIDENCE OF ACUTE STROKE: NO. Head MRI 12/24/17 00:00 IMPRESSION: NORMAL MRI and MRA OF THE BRAIN WITHOUT AND WITH INTRAVENOUS GADOLINIUM CONTRAST. EVIDENCE OF ACUTE STROKE: NO. Qualifiers - * PATIENT BEING DISCHARGED WITH ANY OF THE FOLLOWING DIAGNOSIS: No
== END 2017-12-25 12:11 | disposition home or self-care (01) ==
LOC: ER 19:20 → EH 12-24 02:54 → 5 12-24 07:18
PROVIDERS: ADMIT Internal Medicine; ATTEND Internal Medicine
DX: R42 Dizziness and giddiness (principal); I95.9 Hypotension, unspecified; F41.1 Generalized anxiety disorder; F32.9 Major depressive disorder, single episode, unspecified; F44.81 Dissociative identity disorder; H53.8 Other visual disturbances; R27.0 Ataxia, unspecified; R51 Headache; H93.13 Tinnitus, bilateral; F13.20 Sedative, hypnotic or anxiolytic dependence, uncomplicated; E78.5 Hyperlipidemia, unspecified; Z82.49 Family history of ischemic heart disease and other diseases of the circulatory system; Z84.89 Family history of other specified conditions; Z83.2 Family history of diseases of the blood and blood-forming organs and certain disorders involving the immune mechanism; Z90.49 Acquired absence of other specified parts of digestive tract; Z79.899 Other long term (current) drug therapy; Z87.891 Personal history of nicotine dependence; Z82.3 Family history of stroke
CPT/HCPCS: 93005; 99285; 96361; 96374; 96375; 36415 ×3; 84439; 82553; 82550; 83690; 83735; 80307; 84443; 85025 ×2; 85610; 80048; 80053; 81001; 84484 ×2; 70553; 70544; 70450; 93010; G0378 ×3; A9270 ×11; J0780; J2405; J7030 ×2; J7040; J3490

== ENCOUNTER 2018-12-13 19:53 | Emergency (ER) | payer OTHER ==
--- NOTE | 2018-12-13 20:19 | ER Document Report ---
ED Medical Screen (RME) - General Chief Complaint: Dizziness Stated Complaint: DIZZY,FACE NUMB/TINGLING Time Seen by Provider: 12/13/18 20:05 Primary Care Provider: KARISSA OLIVARES MD [Primary Care Provider] - Follow up as needed Mode of Arrival: Wheelchair Information source: Patient Notes: 53-year-old female presented to ED for tingling to her lips about 6 PM. States that then went to her tongue. She states she has had waves of lightheadedness. She states the lightheadedness is gotten worse. She went to urgent care and they sent her to the emergency room to be evaluated for dizziness and she would need a CT and a neural surgeon consult. Patient states this scared her so she came to the emergency room. Patient has a history of anxiety depression PTSD asthma pneumonia reflux and a fractured ankle. She has had an appendectomy hysterectomy ankle surgery in the past. She states she does have congestion and nasal drip. Patient is alert oriented respirations regular and unlabored lungs are clear to auscultation. She has no gross neurologic deficits. Pupils are equal and react to light. Patient has equal staff scientist no extremity drifting. Equal strength in arms bilateral legs bilaterally. Had patient stand up to see if she can ambulate and she said she was still very dizzy. She states she did not feel like she was Suzanna but she was still very dizzy. I have greeted and performed a rapid initial assessment of this patient. A comprehensive ED assessment and evaluation of the patient, analysis of test results and completion of medical decision making process will be conducted by an additional ED providers. TRAVEL OUTSIDE OF THE [place] IN LAST 30 DAYS: No - Related Data Allergies/Adverse Reactions: morphine Adverse Reaction (Mild, Verified 12/13/18 20:03) Past Medical History - Past Medical History Cardiac Medical History: Reports: Hx Hypercholesterolemia, Hx Hypertension Pulmonary Medical History: Reports: Hx Asthma Renal/ Medical History: Denies: Hx Peritoneal Dialysis GI Medical History: Reports: Hx Gastroesophageal Reflux Disease Psychiatric Medical History: Reports: Hx Anxiety, Hx Bipolar Disorder, Hx Depression Past Surgical History: Reports: Hx Appendectomy, Hx Hysterectomy - Immunizations Hx Diphtheria, Pertussis, Tetanus Vaccination: - UNKNOWN Physical Exam - Vital signs Vitals: Temp Pulse Resp BP Pulse Ox 98.2 F 68 18 150/89 H 98 12/13/18 20:00 12/13/18 20:00 12/13/18 20:00 12/13/18 20:00 12/13/18 20:00 Course - Vital Signs Vital signs: Temp Pulse Resp BP Pulse Ox 98.2 F 68 18 150/89 H 98 12/13/18 20:00 12/13/18 20:00 12/13/18 20:00 12/13/18 20:00 12/13/18 20:00 Doctor's Discharge - Discharge Referrals: KARISSA OLIVARES MD [Primary Care Provider] - Follow up as needed
[2018-12-13 20:46] LABS: ABSOLUTE BASOPHILS # (AUTO) 0.1 10^3/uL (0.0-0.2); ABSOLUTE EOSINOPHILS # (AUTO) 0.2 10^3/uL (0.0-0.6); ABSOLUTE LYMPHOCYTES (AUTO) 2.6 10^3/uL (0.5-4.7); ABSOLUTE MONOCYTES (AUTO) 0.5 10^3/uL (0.1-1.4); BASOPHILS % (AUTO) 1.3 % (0-2); EOSINOPHILS % (AUTO) 2.1 % (0-6); HEMATOCRIT 41.2 % (36.0-47.0); MEAN CORPUSCULAR HGB CONC 34.1 g/dL (32.0-36.0); MEAN CORPUSCULAR VOLUME 85 fl (80-97); MONOCYTES % (AUTO) 6.4 % (3-13); RED BLOOD COUNT 4.84 10^6/uL (3.72-5.28); RED CELL DISTRIBUTION WIDTH 13.4 % (11.5-14.0); SEGMENTED NEUTROPHILS % (AUTO) 59.2 % (42-78); TOTAL CELLS COUNTED % (AUTO) 100 %; WHITE BLOOD COUNT 8.5 10^3/uL (4.0-10.5)
[2018-12-13 20:50] LABS: APPEARANCE,URINE CLEAR; BILIRUBIN,URINE NEGATIVE (NEGATIVE); COLOR,URINE YELLOW; GLUCOSE, URINE NEGATIVE (NEGATIVE); KETONES,URINE NEGATIVE (NEGATIVE); LEUKOCYTE ESTERASE,URINE TRACE (NEGATIVE); NITRITE,URINE NEGATIVE (NEGATIVE); PROTEIN,URINE NEGATIVE (NEGATIVE); URINE SPECIFIC GRAVITY 1.017; UROBILINOGEN,URINE NEGATIVE mg/dL (<2.0)
[2018-12-13 21:02] LABS: PLATELET COUNT 213 10^3/uL (150-450)
[2018-12-13 21:38] LABS: ALANINE AMINOTRANSFERASE 28 U/L (9-52); ALBUMIN 4.6 g/dL (3.5-5.0); ALKALINE PHOSPHATASE 85 U/L (38-126); ANION GAP 9 (5-19); ASPARTATE AMINO TRANSFERASE 16 U/L (14-36); BILIRUBIN,DIRECT 0.3 mg/dL (0.0-0.4); BILIRUBIN,TOTAL 0.7 mg/dL (0.2-1.3); BLOOD UREA NITROGEN 15 mg/dL (7-20); CALCIUM 10.5 mg/dL (8.4-10.2); CARBON DIOXIDE 31 mmol/L (22-30); CHLORIDE 99 mmol/L (98-107); GLUCOSE 121 mg/dL (75-110); POTASSIUM 4.3 mmol/L (3.6-5.0); SODIUM 138.9 mmol/L (137-145); TOTAL PROTEIN 7.6 g/dL (6.3-8.2)
--- NOTE | 2018-12-13 22:36 | ER Document Report ---
ED General - General Chief Complaint: Dizziness Stated Complaint: DIZZY,FACE NUMB/TINGLING Time Seen by Provider: 12/13/18 20:05 Primary Care Provider: KARISSA OLIVARES MD [Primary Care Provider] - Follow up in 3-5 days Mode of Arrival: Wheelchair Notes: Patient is a 53 year old female that presents to the emergency department for chief complaint of facial tingling. Patient states that this started probably around 6:00 today has been constant since then, she is had sinus drainage recent ly and sinus pressure, thinks it may be related to that. She denies any any fevers associated with this. She has had some pressure she states behind her eyes as well and felt somewhat lightheaded, denies having any dizziness or vertigo symptoms. Denies any numbness, weakness or tingling in any of her extremities. She states that the paresthesias she is having on her face is both sides. She denies any facial droop, visual change, or difficulty speaking. She reports somewhat similar symptoms in the past where she has had tingling across her forehead when she has had sinus pressures. She states she is been having postnasal drip recently as well with a mild cough, but denies any shortness of breath, chest pain or difficulty breathing. Past Medical History: Hypothyroidism, hyperlipidemia, depression Past Surgical History: Appendectomy, hysterectomy Social History: Denies tobacco, alcohol or drug use. Family History: Reviewed and noncontributory for presenting illness Allergies: Reviewed, see documented allergy list. REVIEW OF SYSTEMS: Other than noted above, the 12 point review of systems was reviewed with the patient and were negative, all pertinent findings are included in the HPI. PHYSICAL EXAMINATION: Vital signs reviewed, nursing noted reviewed. GENERAL: Well-appearing, well-nourished and in no acute distress. HEAD: Atraumatic, normocephalic. EYES: Eyes appear normal, extraocular movements intact, sclera anicteric, conjunctiva are normal. ENT: nares patent, oropharynx clear without exudates. Moist mucous membranes. Mild bilateral nasal turbinate injection. No drainage. NECK: Normal range of motion, supple without lymphadenopathy LUNGS: Breath sounds clear to auscultation bilaterally and equal. No wheezes rales or rhonchi. HEART: Regular rate and rhythm without murmurs ABDOMEN: Soft, nontender, normoactive bowel sounds. No rebound, guarding, or rigidity. No masses appreciated. EXTREMITIES: Nontender, good range of motion, no pitting or edema. NEUROLOGICAL: Cranial nerves tested, intact, normal and equal sensation bilaterally to the face, no facial droop, no dysarthria, muscular motor strength is +5/5 in all extremities, sensation intact and equal bilaterally in all extremities. Uodria-mxhc-npipqs testing bilaterally, heel prieto testing normal bilaterally. No focal neurological deficits. Moves all extremities spontaneously Motor and sensory grossly intact on exam. PSYCH: Normal mood, normal affect. SKIN: Warm, Dry, normal turgor, no rashes or lesions noted on exposed skin TRAVEL OUTSIDE OF THE [place] IN LAST 30 DAYS: No - Related Data Allergies/Adverse Reactions: morphine Adverse Reaction (Mild, Verified 12/13/18 20:03) Past Medical History - General Information source: Patient - Social History Smoking Status: Former Smoker Family History: CAD - Parents and grandparents in their 60s., CVA, Hypertension, Other - Hypercoagulable state with blood clots Patient has suicidal ideation: No Patient has homicidal ideation: No - Past Medical History Cardiac Medical History: Reports: Hx Hypercholesterolemia, Hx Hypertension Pulmonary Medical History: Reports: Hx Asthma Renal/ Medical History: Denies: Hx Peritoneal Dialysis GI Medical History: Reports: Hx Gastroesophageal Reflux Disease Psychiatric Medical History: Reports: Hx Anxiety, Hx Bipolar Disorder, Hx Depression Past Surgical History: Reports: Hx Appendectomy, Hx Hysterectomy - Immunizations Hx Diphtheria, Pertussis, Tetanus Vaccination: - UNKNOWN Physical Exam - Vital signs Vitals: Temp Pulse Resp BP Pulse Ox 98.2 F 68 18 150/89 H 98 12/13/18 20:00 12/13/18 20:00 12/13/18 20:00 12/13/18 20:00 12/13/18 20:00 Course - Re-evaluation Re-evalutation: Patient seen and examined vital signs reviewed. Laboratory data and/or imaging were ordered as appropriate for the patient's presenting symptoms and complaint, with consideration of any critical or life threatening conditions that may be associated with their obtained history and exam as noted above. Results were reviewed when available and demonstrated essentially unremarkable blood work with the exception of her TSH being 10, she states she recently had blood work with her primary care and believes it was tested, she will follow-up with them regarding a change in her levothyroxine dosing, she currently takes [address] of her head was negative for any acute intracranial abn ormalities. The patient was re-evaluated and was stable, still having some facial paresthesias, but no numbness, neuro exam was unchanged. And essentially benign. Evaluation was most consistent with facial paresthesias, I will prescribe the patient Flonase that she is been having sinus congestion and postnasal drip recently to see if this will help with the facial paresthesias she is having as well. Results were discussed with the patient at this point, after careful consideration I feel that that patient can be discharged from the emergency department, the patient was educated treatments and reasons to return to the emergency department based on their presumed diagnosis as noted above, they were advised to followup with a primary care physician in 2-3 days. Patient was agreeable to plan of care. *Note is created using voice recognition software and may contain spelling, syntax or grammatical errors. Laboratory 12/13/18 12/13/18 12/13/18 20:24 20:24 20:24 WBC 8.5 RBC 4.84 Hgb 14.0 Hct 41.2 MCV 85 MCH 29.0 MCHC 34.1 RDW 13.4 Plt Count 213 Seg Neutrophils % 59.2 Lymphocytes % 31.0 Monocytes % 6.4 Eosinophils % 2.1 Basophils % 1.3 Absolute Neutrophils 5.0 Absolute Lymphocytes 2.6 Absolute Monocytes 0.5 Absolute Eosinophils 0.2 Absolute Basophils 0.1 Sodium Cancelled Potassium Cancelled Chloride Cancelled Carbon Dioxide Cancelled Anion Gap Cancelled BUN Cancelled Creatinine Cancelled Est GFR ( Amer) Cancelled Est GFR (Non-Af Amer) Cancelled Glucose Cancelled Calcium Cancelled Total Bilirubin Cancelled Direct Bilirubin Cancelled Neonat Total Bilirubin Cancelled Neonat Direct Bilirubin Cancelled Neonat Indirect Bili Cancelled AST Cancelled ALT Cancelled Alkaline Phosphatase Cancelled Total Protein Cancelled Albumin Cancelled TSH Urine Color YELLOW Urine Appearance CLEAR Urine pH 5.0 Ur Specific [place] 1.017 Urine Protein NEGATIVE Urine Glucose (UA) NEGATIVE Urine Ketones NEGATIVE Urine Blood NEGATIVE Urine Nitrite NEGATIVE Urine Bilirubin NEGATIVE Urine Urobilinogen NEGATIVE Ur Leukocyte Esterase TRACE H Urine WBC (Auto) 2 Urine RBC (Auto) 2 Squamous Epi Cells Auto 2 Urine Mucus (Auto) RARE Urine Ascorbic Acid NEGATIVE 12/13/18 12/13/18 21:10 21:10 WBC RBC Hgb Hct MCV MCH MCHC RDW Plt Count Seg Neutrophils % Lymphocytes % Monocytes % Eosinophils % Basophils % Absolute Neutrophils Absolute Lymphocytes Absolute Monocytes Absolute Eosinophils Absolute Basophils Sodium 138.9 Potassium 4.3 Chloride 99 Carbon Dioxide 31 H Anion Gap 9 BUN 15 Creatinine 1.00 Est GFR ( Amer) > 60 Est GFR (Non-Af Amer) 58 L Glucose 121 H Calcium 10.5 H Total Bilirubin 0.7 Direct Bilirubin 0.3 Neonat Total Bilirubin Not Reportable Neonat Direct Bilirubin Not Reportable Neonat Indirect Bili Not Reportable AST 16 ALT 28 Alkaline Phosphatase 85 Total Protein 7.6 Albumin 4.6 TSH 10.40 H Urine Color Urine Appearance Urine pH Ur Specific [place] Urine Protein Urine Glucose (UA) Urine Ketones Urine Blood Urine Nitrite Urine Bilirubin Urine Urobilinogen Ur Leukocyte Esterase Urine WBC (Auto) Urine RBC (Auto) Squamous Epi Cells Auto Urine Mucus (Auto) Urine Ascorbic Acid Head CT 12/13/18 22:16 IMPRESSION: Negative for acute intracranial abnormality TECHNICAL DOCUMENTATION: Quality ID # [id number]: Final reports with documentation of one or more dose reduction techniques (e.g., Automated exposure control, adjustment of the mA and/or kV according to patient size, use of iterative reconstruction technique) copyright 2011 [employer]- All Rights Reserved - Vital Signs Vital signs: Temp Pulse Resp BP Pulse Ox 98.2 F 68 18 150/89 H 98 12/13/18 20:00 12/13/18 20:00 12/13/18 20:00 12/13/18 20:00 12/13/18 20:00 - Laboratory Result Diagrams: 12/13/18 20:24 12/13/18 21:10 Laboratory results interpreted by me: 12/13/18 12/13/18 12/13/18 20:24 21:10 21:10 Carbon Dioxide 31 H Est GFR (Non-Af Amer) 58 L Glucose 121 H Calcium 10.5 H TSH 10.40 H Ur Leukocyte Esterase TRACE H Discharge - Discharge Clinical Impression: Facial paresthesia Condition: Stable Disposition: HOME, SELF-CARE Instructions: Numbness or Paresthesia ([facility]) Additional Instructions: Please follow-up with your primary care physician, I suggest using some Flonase, for your sinus congestion, at least for the next 2 weeks. Your thyroid testing, demonstrated an elevated TSH, which is the screening test for thyroid disease, it was elevated, which is actually indicative that your thyroid function is low at this time, he will need to follow-up with your primary care physician, to discuss increasing your thyroid medication. Prescriptions: Fluticasone Propionate [Flonase Nasal [place] 50 Mcg/[place] 16 gm] 1 spray NASL Q12 #1 inhaler Referrals: KARISSA OLIVARES MD [Primary Care Provider] - Follow up in 3-5 days
--- NOTE | 2018-12-13 23:23 | RADIOLOGY REPORT (SQ) ---
EXAM DESCRIPTION: CT HEAD WITHOUT IV CONTRAST COMPLETED DATE/TME: 12/13/2018 22:16 CLINICAL HISTORY: 53 years, Female, facial paresthesias COMPARISON: Prior CT brain 12/23/2017 TECHNIQUE: 194 Images stored on PACS. All CT scanners at this facility use dose modulation, iterative reconstruction, and/or weight based dosing when appropriate to reduce radiation dose to as low as reasonably achievable (ALARA). [facility]: Dose Right [facility]: CareDose [facility]: Dose Right [facility]: Teradose 4D [facility]: [employer] LIMITATIONS: None. FINDINGS: The globes, paranasal sinuses, mastoid air cells are unremarkable. No displaced or depressed skull fracture. No intra or extra-axial hemorrhage. CT is limited for evaluation of acute infarct. No CT evidence for large or territorial acute infarct. No mass or midline shift. Hyperostosis frontalis interna. IMPRESSION: Negative for acute intracranial abnormality TECHNICAL DOCUMENTATION: Quality ID # [id number]: Final reports with documentation of one or more dose reduction techniques (e.g., Automated exposure control, adjustment of the mA and/or kV according to patient size, use of iterative reconstruction technique) copyright 2011 [employer]- All Rights Reserved
[2018-12-13 23:50] VITALS: BP 135/78
== END 2018-12-13 23:49 | disposition home or self-care (01) ==
LOC: ER 19:53
DX: R20.2 Paresthesia of skin (principal); R09.81 Nasal congestion; R09.82 Postnasal drip; R42 Dizziness and giddiness; R05 Cough; I10 Essential (primary) hypertension; J45.909 Unspecified asthma, uncomplicated; E03.9 Hypothyroidism, unspecified; Z79.899 Other long term (current) drug therapy; Z87.891 Personal history of nicotine dependence
CPT/HCPCS: 36415; 70450; 80053; 81001; 84443; 85025; 99284

== ENCOUNTER 2019-01-30 15:03 | Emergency (ER) | payer OTHER ==
[2019-01-30] MEDS ORDERED: FENTANYL CITRATE INJ/PF 100 MCG/2 ML AMPUL IV ONE (15:44)
--- NOTE | 2019-01-30 15:45 | ER Document Report ---
ED Medical Screen (RME) - General Chief Complaint: Pelvic Pain Stated Complaint: PELVIC PAIN Time Seen by Provider: 01/30/19 15:40 Primary Care Provider: KARISSA OLIVARES MD [Primary Care Provider] - Follow up as needed Notes: Patient is a 53-year-old female presents to the emergency room with pelvic pain. States she has a history of a partial hysterectomy. States she had generalized suprapubic and pelvic pain for the last 3 days. States she went to an urgent care who told her that her urine was not infected. They states she may have an ovarian cyst but they did not have any way to do an ultrasound. Patient is denying any vaginal bleeding, discharge, malodorous smells. Patient is denying any dysuria. GENERAL: Alert, interacts well. No acute distress. ABDOMEN: Soft, non-tender. Non-distended. Bowel sounds present in all 4 quadrants. Pelvic pain noted bilaterally, suprapubic pain I have greeted and performed a rapid initial assessment of this patient. A comprehensive ED assessment and evaluation of the patient, analysis of test results and completion of the medical decision making process will be conducted by additional ED providers. This medical record was dictated with voice recognizing software. There may be grammatical, syntax errors that are unintended. TRAVEL OUTSIDE OF THE [place] IN LAST 30 DAYS: No - Related Data Allergies/Adverse Reactions: No Known Allergies Allergy (Unverified 01/30/19 15:10) Past Medical History - General Last Menstrual Period: n/a - Social History Chew tobacco use (# tins/day): No Frequency of alcohol use: None Drug Abuse: None - Past Medical History Cardiac Medical History: Reports: Hx Hypercholesterolemia, Hx Hypertension Pulmonary Medical History: Reports: Hx Asthma Renal/ Medical History: Denies: Hx Peritoneal Dialysis GI Medical History: Reports: Hx Gastroesophageal Reflux Disease Psychiatric Medical History: Reports: Hx Anxiety, Hx Bipolar Disorder, Hx Depression Past Surgical History: Reports: Hx Appendectomy, Hx Hysterectomy - Immunizations Hx Diphtheria, Pertussis, Tetanus Vaccination: - UNKNOWN Physical Exam - Vital signs Vitals: Temp Pulse Resp BP Pulse Ox 98.6 F 81 20 153/88 H 94 01/30/19 15:22 01/30/19 15:22 01/30/19 15:22 01/30/19 15:22 01/30/19 15:22 Course - Vital Signs Vital signs: Temp Pulse Resp BP Pulse Ox 98.6 F 81 20 153/88 H 94 01/30/19 15:22 01/30/19 15:22 01/30/19 15:22 01/30/19 15:22 01/30/19 15:22 Doctor's Discharge - Discharge Referrals: KARISSA OLIVARES MD [Primary Care Provider] - Follow up as needed
[2019-01-30 16:31] LABS: ABSOLUTE BASOPHILS # (AUTO) 0.1 10^3/uL (0.0-0.2); ABSOLUTE EOSINOPHILS # (AUTO) 0.1 10^3/uL (0.0-0.6); ABSOLUTE LYMPHOCYTES (AUTO) 1.7 10^3/uL (0.5-4.7); ABSOLUTE MONOCYTES (AUTO) 0.6 10^3/uL (0.1-1.4); ABSOLUTE NEUT (AUTO) 4.9 10^3/uL (1.7-8.2); BASOPHILS % (AUTO) 1.3 % (0-2); EOSINOPHILS % (AUTO) 1.8 % (0-6); HEMATOCRIT 41.4 % (36.0-47.0); HEMOGLOBIN 13.8 g/dL (12.0-15.5); LYMPHOCYTES % (AUTO) 22.5 % (13-45); MEAN CORPUSCULAR HGB CONC 33.4 g/dL (32.0-36.0); MEAN CORPUSCULAR VOLUME 84 fl (80-97); MONOCYTES % (AUTO) 8.1 % (3-13); PLATELET COUNT 200 10^3/uL (150-450); RED BLOOD COUNT 4.94 10^6/uL (3.72-5.28); SEGMENTED NEUTROPHILS % (AUTO) 66.3 % (42-78); TOTAL CELLS COUNTED % (AUTO) 100 %; WHITE BLOOD COUNT 7.4 10^3/uL (4.0-10.5)
[2019-01-30 16:34] LABS: APPEARANCE,URINE SLIGHTLY-CLOUDY; BILIRUBIN,URINE NEGATIVE (NEGATIVE); COLOR,URINE YELLOW; GLUCOSE, URINE NEGATIVE (NEGATIVE); KETONES,URINE TRACE mg/dL (NEGATIVE); LEUKOCYTE ESTERASE,URINE MODERATE (NEGATIVE); NITRITE,URINE NEGATIVE (NEGATIVE); PROTEIN,URINE NEGATIVE (NEGATIVE); URINE SPECIFIC GRAVITY 1.023; UROBILINOGEN,URINE NEGATIVE mg/dL (<2.0)
[2019-01-30 16:50] LABS: ALANINE AMINOTRANSFERASE 21 U/L (9-52); ALBUMIN 4.5 g/dL (3.5-5.0); ALKALINE PHOSPHATASE 76 U/L (38-126); ANION GAP 10 (5-19); ASPARTATE AMINO TRANSFERASE 19 U/L (14-36); BILIRUBIN,DIRECT 0.2 mg/dL (0.0-0.4); BILIRUBIN,TOTAL 0.7 mg/dL (0.2-1.3); BLOOD UREA NITROGEN 12 mg/dL (7-20); CALCIUM 9.6 mg/dL (8.4-10.2); CARBON DIOXIDE 26 mmol/L (22-30); CHLORIDE 104 mmol/L (98-107); GLUCOSE 132 mg/dL (75-110); POTASSIUM 4.2 mmol/L (3.6-5.0); TOTAL PROTEIN 7.2 g/dL (6.3-8.2)
[2019-01-30] MEDS ORDERED: METOCLOPRAMIDE HCL 10 MG TABLET PO ONE (16:53)
--- NOTE | 2019-01-30 17:22 | RADIOLOGY REPORT (SQ) ---
EXAM DESCRIPTION: U/S NON OB PEL TV W/DOPPLER COMPLETED DATE/TIME: 01/30/2019 4:58 pm REASON FOR STUDY: pelvic pain COMPARISON: None. TECHNIQUE: Dynamic and static grayscale images acquired of the pelvis via transvaginal approach and recorded on PACS. Additional selected color Doppler and spectral images recorded. LIMITATIONS: None. FINDINGS: UTERUS: Surgically absent. ENDOMETRIAL STRIPE: Not applicable. CERVIX: Not applicable. RIGHT OVARY AND DOPPLER: Obscured by overlying bowel gas. LEFT OVARY AND DOPPLER: Normal size. No worrisome masses. Normal arterial vascular flow without evide nce for torsion. 2.2 x 1.6 x 3.3 cm Set to cyst. FREE FLUID: None noted. OTHER: No other significant finding. MEASUREMENTS: UTERUS: Not applicable. ENDOMETRIAL STRIPE: Not applicable. RIGHT OVARY: Ovary not seen. LEFT OVARY: 3.8 x 2.1 x 3.4 cm. IMPRESSION: 3.3 cm septated left ovarian cyst. Recommend surgical evaluation. TECHNICAL DOCUMENTATION: JOB ID: [id number] [employer]- All Rights Reserved Rev Reading location - IP/workstation name: [email or web address]
--- NOTE | 2019-01-30 17:49 | ER Document Report ---
ED General - General Chief Complaint: Pelvic Pain Stated Complaint: PELVIC PAIN Time Seen by Provider: 01/30/19 15:40 Primary Care Provider: KARISSA OLIVARES MD [Primary Care Provider] - Follow up as needed Mode of Arrival: Ambulatory Information source: Patient TRAVEL OUTSIDE OF THE [place] IN LAST 30 DAYS: No - HPI Patient complains to provider of: Pelvic pain Onset: Other - 4 days ago Onset/Duration: Sudden Quality of pain: Sharp Severity: Severe Pain Level: 4 Associated symptoms: None Exacerbated by: Denies Relieved by: Denies Similar symptoms previously: No Recently seen / treated by doctor: No Notes: 53-year-old female coming in today with pelvic pain. This started spontaneously 4 days ago. Interestingly enough, patient does not have a uterus secondary to endometriosis in the past. She was seen in the walk-in clinic. They did not find any UTI. Told her she could have a cyst on her ovary. - Related Data Allergies/Adverse Reactions: No Known Allergies Allergy (Unverified 01/30/19 15:10) Past Medical History - General Information source: Patient Last Menstrual Period: n/a - Social History Smoking Status: Former Smoker Chew tobacco use (# tins/day): No Frequency of alcohol use: None Drug Abuse: None Family History: CAD - Parents and grandparents in their 60s., CVA, Hypertension, Other - Hypercoagulable state with blood clots Patient has suicidal ideation: No Patient has homicidal ideation: No - Past Medical History Cardiac Medical History: Reports: Hx Hypercholesterolemia, Hx Hypertension Pulmonary Medical History: Reports: Hx Asthma Renal/ Medical History: Denies: Hx Peritoneal Dialysis GI Medical History: Reports: Hx Gastroesophageal Reflux Disease Psychiatric Medical History: Reports: Hx Anxiety, Hx Bipolar Disorder, Hx Depression Past Surgical History: Reports: Hx Appendectomy, Hx Cholecystectomy, Hx Hysterectomy - Immunizations Hx Diphtheria, Pertussis, Tetanus Vaccination: - UNKNOWN Review of Systems - Review of Systems Notes: Constitutional: No fevers. No chills. EENT: No eye redness. No eye pain. No ear pain. No sore throat. Cardiovascular: No chest pain. No palpitations. Respiratory: No cough. No shortness of breath. No respiratory distress. Gastrointestinal: No abdominal pain. No nausea, vomiting, or diarrhea. Genitourinary: Positive for pelvic pain Musculoskeletal: Atraumatic. No swelling. No deformities. Skin: No rash or lesions. Lymphatic: No swollen lymph nodes. Neurologic: No headache. No syncope. Psychiatric: No suicidal or homicidal ideation. Physical Exam - Vital signs Vitals: Temp Pulse Resp BP Pulse Ox 98.6 F 81 20 153/88 H 94 01/30/19 15:22 01/30/19 15:22 01/30/19 15:22 01/30/19 15:22 01/30/19 15:22 - Notes Notes: General: Well-developed, well-nourished. In no acute distress. Non-toxic appearing. Cardiac: Well-perfused. Regular rate and rhythm. No murmurs, rubs, or gallops. Pulmonary: No respiratory distress. No cyanosis. Bilateral lung fiels are clear to auscultation. Abdominal: Non-distended. Non-rigid. Bowels sounds are present in all four quadrants. No guarding or rebound. HEENT: Head is atraumatic. Conjunctivae not reddened. No tearing. PERRL. EOMI. Orbits atraumatic. No periorbital swelling or erythema. Oropharynx is without erythema, swelling, or exudates. Neck: Supple. No adenopathy. No meningismus. Dermatologic: Warm with good turgor. No rash. Atraumatic. Chest: Atraumatic. No chest wall tenderness to palpation. Musculoskeletal: Moves all extremities well. No range of motion deficits. no mu scular or joint tenderness. No paraspinal muscle tenderness. no midline spinal tenderness or step-off. Genitourinary: Examination deferred Neurologic: No gross neurologic deficits. Psychiatric: Normal mood. Course - Re-evaluation Re-evalutation: 01/30/19 17:46 Septated 3 cm ovarian cyst left side. 01/30/19 17:48 - Vital Signs Vital signs: Temp Pulse Resp BP Pulse Ox 98.6 F 81 20 153/88 H 94 01/30/19 15:22 01/30/19 15:22 01/30/19 15:22 01/30/19 15:22 01/30/19 15:22 - Laboratory Result Diagrams: 01/30/19 16:10 01/30/19 16:10 Laboratory results interpreted by me: 01/30/19 01/30/19 16:10 16:10 Glucose 132 H Urine Ketones TRACE H Ur Leukocyte Esterase MODERATE H Discharge - Discharge Clinical Impression: Ovarian cyst Qualifiers: Laterality: right Qualified Code(s): N83.201 - Unspecified ovarian cyst, right side Condition: Good Disposition: HOME, SELF-CARE Instructions: Ovarian Cyst ([facility]) Prescriptions: Hydrocodone/Acetaminophen [Peridot 5-325 mg Tablet] 1 tab PO Q6HP PRN #12 tablet PRN Reason: Referrals: DAGO ALCALA MD [ACTIVE STAFF] - Follow up as needed
[2019-01-30 18:04] VITALS: BP 148/89
== END 2019-01-30 18:07 | disposition home or self-care (01) ==
LOC: ER 15:03
DX: N83.292 Other ovarian cyst, left side (principal); R10.2 Pelvic and perineal pain; I10 Essential (primary) hypertension; J45.909 Unspecified asthma, uncomplicated; Z87.891 Personal history of nicotine dependence; Z90.710 Acquired absence of both cervix and uterus; Z90.49 Acquired absence of other specified parts of digestive tract
CPT/HCPCS: 99284; 96374; 36415; 87086; 85025; 80053; 81001; 76830; 93976; J3010; A9270